=== PATIENT | male | born 2000 | race Caucasian/White ===

== ENCOUNTER 2020-11-22 22:50 | Emergency (ER) | payer BC, SELFPAY ==
[2020-11-22 22:54] VITALS: BP 156/91; PULSE 82; RESP 16; TEMP 35.7; O2SAT 98
--- NOTE | 2020-11-22 23:01 | ED.GENADUL_ITS ---
Discharge Plan Disposition Patient Disposition: HOME Condition: Good Discharge Details Clinical Impression: Dog bite of multiple sites, Closed fracture of phalanx of right little finger, Laceration of muscle of right forearm Primary Care Provider: None,None ED Provider: Ismael Aguirre and New Rx's Prescriptions: New amoxicillin-pot clavulanate [Augmentin] 875-125 mg tablet 1 tab PO BID Qty: 10 RF: 0 Continued cetirizine [Zyrtec] 10 mg Tablet 10 mg PO DAILY RF: 0 Discharge Instructions Instructions: Animal Bite (ED), Finger Fracture (ED), Opioid Safety (ED) Additional Instructions: Leave dressings in place until wound check here on Wednesday. May use the [place] if needed for pain this . Otherwise, keep hands elevated and use Tylenol or Motrin. Ice on off for swelling. Call orthopedics Wednesday for follow up of little finger and forearm muscle. Return to ED for increasing pain, fever, redness, numbness, weakness, cold/white hand. Referrals: [facility] [Provider Group] Medical Decision Making Patient with multiple dog bite injury to E. Given Percocet and Augmentin and sent to x-ray. X-ray of left hand negative. Right hand with fracture of the proximal phalanx of the little finger. Right forearm with no fracture or foreign body but extensive subcue emphysema. Puncture wounds all irrigated clean. Laceration anesthetized and then irrigated out. Muscle protruding from laceration but due to small size of wound unable to visualize extent of injury. Appears to have ability to flex wrist and fingers, though with pain. No attempt to repair muscle. Muscle debrided of clot and tucked back into wound. Skin closed. All wounds dressed and wrapped. Little finger place in aluminum foam splint. Patient will be continued on Augmentin. Given to go pack of [place] #4 tabs. Return here for wound check and dressing change on Wednesday. Call ortho Wednesday for follow up regarding finger and forearm injury. HPI General Mode of arrival: ambulatory . Date/Time Provider Initiated Documentation: 11/22/20 23:01 . Limitations to Documentation: no limitations . Information obtained by: patient and RN notes reviewed . HPI Narrative: Patient presents to ED with multiple dog bites involving both upper extremities. It was the patient's own dog. Dog had urinated in house and patient was trying to crate him so could clean up. Dog attacked. Dog is up to date on shots. Patient is up to date on tetanus. He sustained injury to left hand, right hand, right forearm. Complains of some tingling back of right hand/thumb. Related Data Home Medications Medication Instructions Recorded Confirmed cetirizine [Zyrtec] 10 mg PO DAILY 11/22/20 11/22/20 amoxicillin-pot clavulanate 1 tab PO BID #10 tab 11/23/20 [Augmentin] Previous Rx's Medication Instructions Recorded amoxicillin-pot clavulanate 1 tab PO BID #10 tab 11/23/20 [Augmentin] Allergies Allergy/AdvReac Type Severity Reaction Status Date / Time No Known Allergies Allergy Unverified 11/22/20 22:55 General Stated Complaint: AnimalBite AMENA: 3 Review of Systems Constitutional Constitutional: Denies fever(s) Cardiovascular Cardiovascular: Denies dyspnea Respiratory Respiratory: Denies cough and Denies dyspnea Musculoskeletal Musculoskeletal: Reports deformity and Reports tingling Integumentary/Breasts Skin/Breast: Reports wounds Neurologic Neurologic: Reports tingling PFSH Medical History No significant past medical history Surgical History (Updated 11/23/20 @ 01:13 by Ismael Aguirre MD) No significant past surgical history Social History Smoking/Tobacco Use Status: Never Smoking risk assessment performed?: Yes Alcohol Intake: never Substance use type: does not use Do you feel safe at home: Yes Do you feel safe in your relationship?: Yes Exam Const General: cooperative Orientation: alert and oriented x3 Neck Neck: trachea midline and supple Resp Effort & Inspection: normal respiratory effort Skin Other: Puncture wounds to dorsal/volar aspect of left hand. Puncture wounds to right forearm. Laceration with muscle belly protruding from volar right forearm. Lac 2cm in length. Extrem Other: Left hand with decreased ROM of thumb due to pain. Puncture wounds/crush injury involving base of thumb area. Is able to flex and extended all digits but with pain. Right hand with decreased ROM due to pain in forearm. Little finger deformed. Able to flex/extended digits but not fully due to pain in forearm. Right forearm with puncture wounds, laceration and crush injury present. Motor in tact. Sensory subjetively abnormal dorsum of hand involving thumb, index finger. Radial pulses good. Cap refill good. Course Vital Signs Vital signs: Vital Signs Temperature 96.3 F L 11/22/20 22:54 Pulse 82 11/22/20 22:54 Respiratory Rate 16 11/22/20 22:54 Blood Pressure 156/91 H 11/22/20 22:54 Pulse Oximetry 98 11/22/20 22:54 Temperature 96.3 F L 11/22/20 22:54 Temperature Source Skin 11/22/20 22:54 Pulse 82 11/22/20 22:54 Respiratory Rate 16 11/22/20 22:54 Blood Pressure 156/91 H 11/22/20 22:54 Blood Pressure Position Sitting 11/22/20 22:54 Pulse Oximetry 98 11/22/20 22:54 Oxygen Delivery Method Room Air 11/22/20 22:54 Oxygen Flow Rate 0 11/22/20 22:54 Pain Level 10 11/22/20 22:54 Procedures Laceration Laceration 1: Site: upper extremity Side (If applicable): right Size (cm): 2 Description: linear Depth: involves muscle layer Local Anesthetic: Lidocaine 1% Amount of anesthesia used (mL): 4 Pre-repair: wound explored and irrigated extensively Skin layer closed with: nylon Size (cm): 4-0 Number of sutures: 3 Orthopedic Splinting/Casting Injury #1: Side: right Upper Extremity Injury Location: finger Upper Extremity Immobilizer: aluminum form splint
[2020-11-22] MEDS: oxyCODONE 5 mg/Acetaminophen 325 mg TAB 1 TAB PO (23:20)
--- NOTE | 2020-11-22 23:37 | DI.RAD_ITS ---
EXAM: XR HAND RT COMPLETE CLINICAL HISTORY: dog bite/attack. TECHNIQUE: 2D digital imaging was performed. COMPARISON: No exams were available for comparison FINDINGS: BONES: There is a fracture of the proximal phalanx of the 5th finger extending mainly transversely ne ar the base. There is no definite extension to the articular surface. There is some angulation but no significant displacement.. No bony destructive lesion is seen. JOINTS: No dislocation present. SOFT TISSUE: Subcutaneous emphysema is seen in the wrist. IMPRESSION: Fracture of the proximal phalanx of the 5th finger. DATA REPOSITORY: RADIATION DOSE DELIVERED:
--- NOTE | 2020-11-22 23:38 | DI.RAD_ITS ---
EXAM: XR FOREARM RT CLINICAL HISTORY: dog bite/attack. TECHNIQUE: 2D digital imaging was performed. COMPARISON: CR,XR XR HAND LT COMPLETE from 11/22/2020 FINDINGS: BONES: No acute fracture is present. No bony destructive lesion is seen. Visualized portion of elbow and wrist joints are unremarkable. SOFT TISSUE: There is a soft tissue laceration seen ventrally in the distal forearm. There is a mode rate amount subcutaneous emphysema. IMPRESSION: Soft tissue laceration and subcutaneous emphysema. No fracture or foreign body. DATA REPOSITORY: RADIATION DOSE DELIVERED:
--- NOTE | 2020-11-22 23:39 | DI.RAD_ITS ---
EXAM: XR HAND LT COMPLETE CLINICAL HISTORY: dog bite/attack. TECHNIQUE: 2D digital imaging was performed. COMPARISON: CR,XR XR HAND RT COMPLETE from 11/22/2020 FINDINGS: BONES: No acute fracture is present. No bony destructive lesion is seen. JOINTS: No dislocation present. SOFT TISSUE: Normal. No foreign body or abnormal gas collection. IMPRESSION: Unremarkable radiographs of the left hand. DATA REPOSITORY: RADIATION DOSE DELIVERED:
--- NOTE | 2020-11-22 23:52 | DI.VRAD_ITS ---
PROCEDURE INFORMATION: Exam: XR Right Hand Exam date and time: 11/22/2020 11:17 PM Age: 20 years old Clinical indication: Injury or trauma; Other: Dog attack; Bite; Hand; Right; Injury date: 11/22/20 TECHNIQUE: Imaging protocol: XR Right hand. Views: 3 or more views. COMPARISON: No relevant prior studies available. FINDINGS: Bones/joints: Minimally displaced and angulated extra-articular fracture of proximal little finger proximal phalanx. Other bones and joints are intact. Normal osseous mineralization. Soft tissues: Unremarkable soft tissues. IMPRESSION: Minimally displaced and angulated extra-articular fracture of the little finger proximal phalanx. Dictated and Authenticated by: Ghulam Green MD. Ordering:DREA Guevara MD
--- NOTE | 2020-11-22 23:53 | DI.VRAD_ITS ---
PROCEDURE INFORMATION: Exam: XR Left Hand Exam date and time: 11/22/2020 11:39 PM Age: 20 years old Clinical indication: Injury or trauma; Other: Dog attack; Bite; Hand; Left; Injury date: 11/22/20 TECHNIQUE: Imaging protocol: XR Left hand. Views: 3 or more views. COMPARISON: No relevant prior studies available. FINDINGS: Bones/joints: Prior ulnar styloid fracture. No acute fracture or dislocation. Normal osseous mineralization. Soft tissues: Unremarkable soft tissues. IMPRESSION: No acute fracture. Dictated and Authenticated by: Ghulam Green MD. Ordering:DREA Guevara MD
--- NOTE | 2020-11-22 23:54 | DI.VRAD_ITS ---
PROCEDURE INFORMATION: Exam: XR Right Forearm Exam date and time: 11/22/2020 11:39 PM Age: 20 years old Clinical indication: Injury or trauma; Other: Dog attack; Bite; Arm, lower; Right; Injury date: 11/22/20 TECHNIQUE: Imaging protocol: XR Right forearm. Views: 2 views. COMPARISON: No relevant prior studies available. FINDINGS: Bones/joints: No fracture or dislocation. Normal osseous mineralization. Soft tissues: Moderate subcutaneous emphysema. No radiopaque foreign body. IMPRESSION: 1. No acute fracture. 2. Subcutaneous emphysema. No retained radiopaque foreign body. Dictated and Authenticated by: Ghulam Green MD. Ordering:DREA Guevara MD
[2020-11-23 00:46] VITALS: BP 146/81; PULSE 70; RESP 16; O2SAT 99
--- NOTE | 2020-11-23 07:23 | NUR.NOTE ---
Addendum entered by Adele Bowman 11/23/20 08:38: Message left on cell phone for Navid Loya, health officer regarding animal bite. Adele Bowman Original Note: Nursing Note: Animal bite report form faxed to [facility] Health Officer, Navid Loya. Adele Bowman
== END 2020-11-23 00:55 | disposition home or self-care (01) ==
PROVIDERS: Emergency Provider Emergency Medicine
DX: S62.646A Nondisplaced fracture of proximal phalanx of right little finger, initial encounter for closed fracture (principal); S51.851A Open bite of right forearm, initial encounter; S56.921A Laceration of unspecified muscles, fascia and tendons at forearm level, right arm, initial encounter; W54.0XXA Bitten by dog, initial encounter
CPT/HCPCS: 12001; 99284; 73090; 73130

== ENCOUNTER 2020-11-25 17:59 | Emergency (ER) | payer BC, SELFPAY ==
[2020-11-25 18:02] VITALS: BP 126/79; PULSE 69; RESP 18; TEMP 36.5; O2SAT 98
--- NOTE | 2020-11-25 18:28 | W.ED.GENAD ---
Discharge Plan Disposition Patient Disposition: HOME Condition: Fair Discharge Details Clinical Impression: Dog bite of multiple sites, Infected dog bite Primary Care Provider: None,None ED Provider: Jessica Hoffmann Home Meds and New Rx's Prescriptions: Continued cetirizine [Zyrtec] 10 mg Tablet 10 mg PO DAILY RF: 0 amoxicillin-pot clavulanate [Augmentin] 875-125 mg tablet 1 tab PO BID Qty: 10 RF: 0 Discharge Instructions Instructions: Animal Bite (ED) Additional Instructions: You need to take the antibiotics as prescribed. You also need follow up with orthopedics. Please call tomorrow to schedule appointment. You were given antibiotics tonight, next dose in themorning. If you develop fevers/chills, increased pain, spreading of the redness or other new/worsening symptoms please seek care urgently once again. Referrals: Kevyn Olivarez MD [ [facility] STAFF PHYSICIAN] - Discharge Data Discharge Date/Time-TO BE ENTERED AT DEPARTURE: 11/25/20 20:55 Medical Decision Making Patient is a pleasant 20-year-old [id number] male presenting today with chief complaint of right arm pain. He was seen here 3 days ago after his dog bit him. At that time, his wound was closed with simple interrupted stitches on the right forearm. He was prescribed Augmentin but did not pick this up until today. States that he took 1 dosing of the amoxicillin thus far. States that he has been noting increased swelling and pain. He denies any numbness or tingling. Patient has notable deformity to the fifth digit of the right hand. No fracture to this area. Patient has been keeping splint in place. He was instructed to call orthopedics was not done so as of yet. Denies any fevers or chills. Has noted erythema spreading proximally from the laceration on the forearm. On exam, patient appears uncomfortable Movement of the right upper extremity. He appears nontoxic. He is afebrile. He has notable area of swelling and erythema to the right forearm. This is explored with ultrasound by myself as well as Dr. Hammond. No focal area of fluid collection to suggest abscess is noted. Rather, this seems more consistent with soft tissue swelling and cellulitis. The laceration appears well approximated with no drainage expressed. He also has fifth digit deformity proximally. Puncture wound noted on the dorsal aspect. No erythema, warmth or drainage associated with this. I am concerned with the spreading of the erythema and notable swelling that the patient may have a significant infection. He does not appear to have compartment syndrome, abscess, tenosynovitis. Will obtain baseline labs and give IV antibiotics. Labs reviewed. No leukocytosis. Noticeably dehydrated with elevated BUN but CMP otherwise within normal limits. Lactate normal. Discussed these findings with the patient. I encouraged elevation and icing the areas to help with discomfort, particularly in the pain of the fifth digit. Splint was reapplied to the. He has now picked up his Augmentin. Will take this as prescribed. Encourage close follow-up with orthopedics. He will call tomorrow to schedule follow-up for this. Strict return precautions were given. We discussed wound care once again. All the questions concerns were addressed and he is agreement this plan. HPI General Mode of arrival: ambulatory. Date/Time Provider Initiated Documentation: 11/25/20 18:28. Limitations to Documentation: no limitations. Information obtained by: patient and RN notes reviewed. History of Present Illness 20 year old M presents to the emergency department with the chief complaint of right arm pain, described as moderate, Quality is described as burning and aching, and is localized to the right and upper extremity. Patient extremity and proximal. Patient started experiencing this day(s) (bit by dog 3 days ago) and it has been constant. Immobilization improves symptom(s), Movement worsens symptoms . Patient notes rash (erythema); denies fever/chills. Patient did receive the following treatments prior to arrival, other (one dose of abx this AM) Related Data Home Medications Medication Instructions Recorded Confirmed cetirizine [Zyrtec] 10 mg PO DAILY 11/22/20 11/25/20 amoxicillin-pot clavulanate 1 tab PO BID #10 tab 11/23/20 11/25/20 [Augmentin] Previous Rx's Medication Instructions Recorded amoxicillin-pot clavulanate 1 tab PO BID #10 tab 11/23/20 [Augmentin] Allergies Allergy/AdvReac Type Severity Reaction Status Date / Time No Known Allergies Allergy Unverified 11/25/20 18:05 General Stated Complaint: Recheck AMENA: 4 Review of Systems Constitutional Constitutional: Reports as per HPI, Denies chills, Denies fever(s), Denies headache(s) and Denies weakness ENT Ears, Nose, Mouth, and Throat: Denies headache(s) Cardiovascular Cardiovascular: Reports as per HPI Respiratory Respiratory: Reports as per HPI and Denies cough Musculoskeletal Musculoskeletal: Reports as per HPI and Denies tingling Integumentary/Breasts Skin/Breast: Reports as per HPI, Reports non-healing lesions, Reports erythema, Reports skin pain, Reports skin swelling and Reports wounds Neurologic Neurologic: Reports as per HPI, Denies headache(s), Denies tingling, Denies paresthesias and Denies weakness [facility] Medical History No significant past medical history Surgical History No significant past surgical history Social History Smoking/Tobacco Use Status: Never Smoking risk assessment performed?: Yes Alcohol Intake: never Substance use type: does not use Do you feel safe at home: Yes Do you feel safe in your relationship?: Yes Exam Const General: cooperative, healthy appearing, comfortable, no acute distress, well developed and well groomed Nutritional Appearance: average body habitus and well nourished Orientation: alert and awake Resp Effort & Inspection: normal respiratory effort, able to speak in complete sentences and no respiratory distress Cardio Rate: regular rate Rhythm: regular rhythm Skin General skin exam: erythema Wounds: wounds noted Neuro General: patient alert and patient awake Cognition: normal cognition Speech: speech normal Gait: normal gait Motor: muscle tone normal throughout Sensory Exam: no sensory deficits noted Extrem Right upper extremity: normal capillary refill and hand Details: abnormal to inspection (Deformity to fifth digit) Elbow/forearm/wrist images: 1. well defined area of swelling. Erythema noted with soft edges. Feels more swollen and fluctuant. Tender to touch. Full range of motion of the elbow. 2. laceration, closed with 3 interupted stitches. Pain at the stitches radiates proximally. Pain is increased with extension of the wrist but he is able to do so but this does cause discomfort. Good flexion of the wrist. Sensation is intact. Psych Appearance: grossly normal and well kempt Mental Status: mental status grossly normal Speech and Movement: speech and movement normal Course Vital Signs Vital signs: Vital Signs Temperature 36.5 C 12/28/20 18:02 Pulse 69 11/25/20 18:02 Respiratory Rate 18 11/25/20 18:02 Blood Pressure 126/79 11/25/20 18:02 Pulse Oximetry 98 11/25/20 18:02 Temperature 36.5 C 11/25/20 18:02 Temperature Source Skin 11/25/20 18:02 Pulse 69 11/25/20 18:02 Respiratory Rate 18 11/25/20 18:02 Respiratory Effort Non-Labored 11/25/20 18:06 Blood Pressure 126/79 11/25/20 18:02 Blood Pressure Position Sitting 11/25/20 18:02 Pulse Oximetry 98 11/25/20 18:02 Oxygen Delivery Method Room Air 11/25/20 18:02 Oxygen Flow Rate 0 11/25/20 18:02 Pain Level 2 11/25/20 18:02
[2020-11-25 18:50] LABS: Abs Immature Grans 0.04 10^3/uL (0.0-0.06); Absolute Basophil Count 0.04 10^3/uL (0.0-0.2); Absolute Monocyte Count 0.95 10^3/uL (0.1-0.8); Absolute Neutrophil Count 6.43 10^3/uL (1.2-6.7); Basophils % 0.4; Eosinophils % 3.9; HCT 45.3 % (40.0-50.0); HGB 15.7 g/dL (13.5-17.5); Immature Grans % 0.4; Lactate 1.1 mmol/L (0.6-1.4); Lymphocytes % 23.4; MCH 32.2 pg (27.0-33.0); MCHC 34.7 % (32.0-36.0); Monocytes % 9.3; Neutrophils % 62.6; Nucleated RBC 0 %; Platelet Count 244 10^3/uL (130-400); RBC 4.87 10^6/uL (4.36-5.78); RDW 11.8 % (11.8-14.1); RDW-SD 40.7 fL; WBC 10.26 10^3/uL (4.4-10.8)
[2020-11-25] MEDS: Normal Saline 1,000 ML 1000 ML IV (19:00)
[2020-11-25] MEDS: PIPERACILLIN/TAZO 3.375 GM in Normal Saline 100 ML IVPB (19:01)
[2020-11-25 19:14] LABS: ALT 36 U/L (16-63); AST 20 U/L (15-37); Albumin 4.1 g/dL (3.4-5.0); Alkaline Phosphatase 75 U/L (46-116); Anion Gap 7.5 mmol/L (3-11); BUN 22 mg/dL (7-18); Bilirubin, Total 0.5 mg/dL (0.2-1.0); CO2 27.5 mmol/L (21.0-32.0); CREATININE 0.97 mg/dL (0.70-1.30); Calcium 9.1 mg/dL (8.5-10.1); Chloride 104 mmol/L (98-107); Glucose 90 mg/dL (74-106); Potassium 4.2 mmol/L (3.5-5.1); Sodium 139 mmol/L (136-145); Total Protein 7.6 g/dL (6.4-8.2)
== END 2020-11-25 20:55 | disposition home or self-care (01) ==
PROVIDERS: Emergency Provider Physician Assistant
DX: S51.851A Open bite of right forearm, initial encounter (principal); L03.113 Cellulitis of right upper limb; W54.0XXA Bitten by dog, initial encounter; R60.0 Localized edema; Y84.8 Other medical procedures as the cause of abnormal reaction of the patient, or of later complication, without mention of misadventure at the time of the procedure; E86.0 Dehydration
CPT/HCPCS: 80053; 96361; 96365; 99284; 83605; 85025; J2543

== ENCOUNTER 2020-12-09 15:44 | Outpatient (CLI) | payer BC, SELFPAY ==
--- NOTE | 2020-12-09 15:30 | DI.RAD_ITS ---
EXAM: XR HAND RT COMPLETE CLINICAL HISTORY: follow up. TECHNIQUE: 2D digital imaging was performed. COMPARISON: CR,XR XR HAND LT COMPLETE from 11/22/2020 FINDINGS: There is a fracture at the base of proximal phalanx 5th finger this mild angulation. There is no fra cture of the adjacent metacarpal elsewhere right. There is no radiopaque foreign body. No osseous l esions. IMPRESSION: Proximal phalanx fracture right 5th finger. DATA REPOSITORY: RADIATION DOSE DELIVERED:
== END 2020-12-09 16:04 ==
PROVIDERS: Visit Provider Physician Assistant Surgical
DX: S62.616A Displaced fracture of proximal phalanx of right little finger, initial encounter for closed fracture (principal)
CPT/HCPCS: 73130

== ENCOUNTER 2020-12-25 18:08 | Emergency (ER) | payer BC, SELFPAY ==
[2020-12-25 18:15] VITALS: BP 163/89; PULSE 77; RESP 16; TEMP 37; O2SAT 98
--- NOTE | 2020-12-25 18:26 | ED.GENADUL_ITS ---
Discharge Plan Disposition Patient Disposition: HOME Condition: Good Discharge Details Clinical Impression: Viral enteritis, Dehydration, Vomiting Primary Care Provider: None,None ED Provider: Bertin Camarena Home Meds and New Rx's Prescriptions: New ondansetron HCl [Zofran] 4 mg tablet 4 mg PO Q8H Qty: 12 RF: 0 Continued cetirizine [Zyrtec] 10 mg Tablet 10 mg PO DAILY RF: 0 Discharge Instructions Instructions: Dehydration (ED), Acute Nausea and Vomiting (ED) Additional Instructions: At this time your labs are reassuring, I suspect that you had a mild virus that caused your symptoms. Please stick with a clear liquid diet for the next 24 to 48 hours and gradually advance your diet. Please take the Zofran as needed for nausea and vomiting. There is a chance that this could have been coronavirus, although that is unlikely. I would recommend quarantining until your symptoms resolve. The test results should be back by next 48 to 72 hours. You will be contacted when your results return. If you notice any worsening of your symptoms, or any new symptoms such as vomiting, diarrhea, fever, chills, shortness of breath, chest pain, numbness, weakness, or fainting , please return immediately to the emergency department for reevaluation. Please follow up with your primary care provider as soon as possible for reassessment and reevaluation. As always, it was a pleasure participating in your medical care today. Medical Decision Making 20-year-old male with no significant past medical history presents today for evaluation of nausea and vomiting subjective chills and fever. Patient states that for the last 24 to 48 hours he has been vomiting and unable to keep anything down. Patient states that his vomiting has been nonbloody, with no coffee grounds. He denies any diarrhea. He denies any other sick contacts. He denies any exposure to Covid. He denies any decrease in taste or smell. He denies any abdominal pain. He has no other complaints at this time. He does smoke marijuana but has stopped smoking since his symptoms started. Physical exam demonstrates notably dry mucous membranes, nontender nonsensitive abdomen. Nontender genitals. Symptoms appearing consistent with acute surgical abdomen. Differential is highest for viral etiology causing his vomiting. Pancreatitis also on the differential. No indication for emergent imaging at this time. Will aggressively rehydrate, give Zofran, for formal trial. Symptom s do not appear to consistent with cyclic vomiting syndrome at this time clinically. 7:46 PM Laboratory work-up is returned, notably unremarkable, electrolytes are stable, anion gap at 12.3, lipase normal. After 2 L of normal saline the patient is feeling better. He has been able to tolerate crackers and juice. He is requesting to go home. Signs and symptoms appear consistent with viral etio logy. Will give Zofran to go, and the Zofran prescription. Discussed slow return to normal diet. Did offer to contact his girlfriend however he stated that he will text her. I have extensively reviewed the treatment plan and discharge instructions with the patient. I have addressed all patient concerns at this time. The patient was made aware of what symptoms to monitor for that would warrant a return to the emergency department. Discussed the plan with the patient, they demonstrate verbal understanding and agreement with our assessment and plan at this time. HPI General Date/Time Provider Initiated Documentation: 12/25/20 18:09 . HPI Narrative: 20-year-old male with no significant past medical history presents today for evaluation of nausea and vomiting subjective chills and fever. Patient states that for the last 24 to 48 hours he has been vomiting and unable to keep anything down. Patient states that his vomiting has been nonbloody, with no coffee grounds. He denies any diarrhea. He denies any other sick contacts. He denies any exposure to Covid. He denies any decrease in taste or smell. He denies any abdominal pain. He has no other complaints at this time. He does smoke marijuana but has stopped smoking since his symptoms started. Related Data Home Medications Medication Instructions Recorded Confirmed cetirizine [Zyrtec] 10 mg PO DAILY 11/22/20 12/25/20 ondansetron HCl [Zofran] 4 mg PO Q8H #12 tab 12/25/20 Previous Rx's Medication Instructions Recorded ondansetron HCl [Zofran] 4 mg PO Q8H #12 tab 12/25/20 Allergies Allergy/AdvReac Type Severity Reaction Status Date / Time tomato Allergy Unverified 12/25/20 18:22 animal dander Allergy Uncoded 12/25/20 18:23 dust Allergy Uncoded 12/25/20 18:23 General Stated Complaint: Nausea/Vomit/Diar AMENA: 3 Review of Systems All systems reviewed & are unremarkable except as noted in HPI and below PFSH Medical History No significant past medical history Surgical History No significant past surgical history Social History Smoking/Tobacco Use Status: Never Smoking risk assessment performed?: Yes Alcohol Intake: never Drug use: Occasionally Substance use type: marijuana Current gender identity: male Do you feel safe at home: Yes Do you feel safe in your relationship?: Yes Exam Narrative Exam Narrative: 1.Const: Well-nourished, Well-developed, appearing stated age 2.Eyes: PERRL, no conjunctival injection, and symmetrical lids. 3.ENT: Atraumatic external nose and ears. Notably dry MM. Neck: Symmetric, trachea midline, No thyromegaly. 4.CVS: +S1/S2, No murmurs or gallops. Peripheral pulses 2+ and equal in all extremities. Brisk capillary refill in all extremities. 5.RESP: Unlabored respiratory effort. Clear to auscultation bilaterally. No wheezes rales or rhonchi 6.GI: Soft, Nontender/Nondistended, No hepatosplenomegaly. No guarding or rebound. No pain at McBurney's point, negative Ybarra sign. 7.MSK: Normocephalic/Atraumatic, Extremities w/o deformity or ttp No cyanosis or clubbing, Normal movement of all extremities 8.Skin: Warm, Dry. No rashes or lesions. 9.Neuro: ironworker apprentice II-XII grossly intact. Sensation grossly intact, no focal neurologic deficits. 10.Psych: (AAO) x3. Appropriate mood and affect Course Vital Signs Vital signs: Vital Signs Temperature 37 C 12/25/20 18:15 Pulse 77 12/25/20 18:15 Respiratory Rate 16 12/25/20 18:15 Blood Pressure 163/89 H 12/25/20 18:15 Temperature 37 C 12/25/20 18:15 Temperature Source Skin 12/25/20 18:15 Pulse 77 12/25/20 18:15 Respiratory Rate 16 12/25/20 18:15 Respiratory Effort Non-Labored 12/25/20 18:15 Blood Pressure 163/89 H 12/25/20 18:15 Blood Pressure Position Sitting 12/25/20 18:15 Pain Level 1 12/25/20 18:15
[2020-12-25] MEDS: Normal Saline 1,000 ML 1000 ML IV ×2 (18:30→19:02)
[2020-12-25] MEDS: Ondansetron 4 MG/2 ML VIAL IVP (18:45)
[2020-12-25 18:48] LABS: Abs Immature Grans 0.01 10^3/uL (0.0-0.06); Absolute Basophil Count 0.03 10^3/uL (0.0-0.2); Absolute Eosinophil Count 0.06 10^3/uL (0.0-0.7); Absolute Lymphocyte Count 1.68 10^3/uL (1.2-3.4); Absolute Monocyte Count 0.71 10^3/uL (0.1-0.8); Absolute Neutrophil Count 6.85 10^3/uL (1.2-6.7); Basophils % 0.3; Eosinophils % 0.6; HCT 46.9 % (40.0-50.0); HGB 17.1 g/dL (13.5-17.5); Immature Grans % 0.1; MCH 32.4 pg (27.0-33.0); MCHC 36.5 % (32.0-36.0); MPV 9.2 fL (8.0-11.0); Monocytes % 7.6; Neutrophils % 73.4; Nucleated RBC 0 %; Platelet Count 247 10^3/uL (130-400); RBC 5.27 10^6/uL (4.36-5.78); RDW 11.4 % (11.8-14.1); RDW-SD 36.9 fL; WBC 9.34 10^3/uL (4.4-10.8)
[2020-12-25 18:54] LABS: Magnesium 1.9 mg/dL (1.8-2.4)
[2020-12-25 18:58] VITALS: TEMP 37.2
[2020-12-25 19:00] LABS: ALT 28 U/L (16-63); AST 16 U/L (15-37); Albumin 4.9 g/dL (3.4-5.0); Alkaline Phosphatase 83 U/L (46-116); Anion Gap 12.3 mmol/L (3-11); BUN 10 mg/dL (7-18); Bilirubin, Total 1.2 mg/dL (0.2-1.0); CO2 23.7 mmol/L (21.0-32.0); Calcium 9.3 mg/dL (8.5-10.1); Chloride 103 mmol/L (98-107); Glucose 109 mg/dL (74-106); Lipase 57 U/L (73-393); Potassium 3.5 mmol/L (3.5-5.1); Sodium 139 mmol/L (136-145); Total Protein 8.1 g/dL (6.4-8.2)
[2020-12-25] MEDS: Normal Saline 500 ML IV (19:32)
[2020-12-25 19:38] VITALS: BP 139/73; PULSE 58; PULSE 61; RESP 15; O2SAT 97
[2020-12-25 19:39] VITALS: PULSE 66; RESP 14; O2SAT 99
[2020-12-25 19:40] VITALS: PULSE 70; RESP 16; O2SAT 97
--- NOTE | 2020-12-25 19:44 | NUR.NOTE ---
Nursing Note:Patient's color improving, more alert. Not much interest in PO but let him know he needed to have something so we can make sure he can keep it down.
[2020-12-25 19:50] VITALS: PULSE 60; RESP 17
[2020-12-25] MEDS: Ondansetron O.D.T. 4 MG TABEF, 3 TABS/BTL PO (19:55)
[2020-12-27 13:39] LABS: COVID-19 RT-PCR UVMMC Result Negative (Negative)
== END 2020-12-25 20:07 | disposition home or self-care (01) ==
PROVIDERS: Emergency Provider Student in an Organized Health Care Education/Training Program
DX: A08.4 Viral intestinal infection, unspecified (principal); E86.0 Dehydration; Z03.818 Encounter for observation for suspected exposure to other biological agents ruled out
CPT/HCPCS: 36415; 80053; 83690; 96361; 96374; 99284; U0003; 83735; 85025; J2405

== ENCOUNTER 2020-12-26 14:26 | Emergency (ER) | payer BC, SELFPAY ==
[2020-12-26 14:37] VITALS: BP 140/88; PULSE 80; RESP 22; TEMP 36.4; O2SAT 98
[2020-12-26 14:46] VITALS: RESP 22
--- NOTE | 2020-12-26 15:21 | W.ED.GENAD ---
Discharge Plan Disposition Patient Disposition: HOME Condition: Stable Discharge Details Clinical Impression: Anxiety and depression Primary Care Provider: None,None ED Provider: Cassy Pike Home Meds and New Rx's Prescriptions: Continued cetirizine [Zyrtec] 10 mg Tablet 10 mg PO DAILY RF: 0 ondansetron HCl [Zofran] 4 mg tablet 4 mg PO Q8H Qty: 12 RF: 0 Discharge Instructions Instructions: Anxiety (ED) Additional Instructions: continue usual medication try relaxation techniques discussed today with mental health return immediately for any new or worsening symtpoms Referrals: None,None [Primary Care Provider] - (follow up outpatient with mental health, referral has been placed) Discharge Data Discharge Date/Time-TO BE ENTERED AT DEPARTURE: 12/26/20 16:40 Medical Decision Making <BAUTISTA Ramirez - Last Filed: 12/27/20 16:23> 20-year-old gentleman presenting with chief complaint of anxiety and panic attacks. He feels completely stressed and overwhelmed. He reports stressors include he is in the process of moving, his mother makes the situation worse, he does not currently have a job, and he was recently forced to get his dog up. He has not been sleeping well. He denies any suicidal or homicidal ideations. He does feel safe. He does not have any outpatient resources. He admits to marijuana use nearly daily and occasional alcohol use. Denies drug use. He currently has no medical concerns or complaints at this time. He took Zofran today that was prescribed yesterday with good relief of his symptoms. I do not believe that any repeat laboratory values are required at this time. He has no acute medical problems, clinically does not appear to be dehydrated. I will have care management evaluate the patient to see if he can be helped with additional outpatient resources. I will also request that mental health evaluate the patient for his increased stress and feelings of being overwhelmed. I was able to speak with mental health who plans to perform a Zoom assessment with the patient. At time of signout, patient was awaiting both care management and mental health evaluation. Care signed out to Cassy Pike NP pending care management and mental health evaluation, and then final disposition. Medical Records Medical records reviewed: Yes I reviewed the patient's medical records. <Cassy Pike NP - Last Filed: 12/26/20 16:25> care of patient received mental health consult completed and plan for outpatient therapy, referral placed by mental health. Medical Records Medical records reviewed: Yes I reviewed the patient's medical records. Lab Data Lab results reviewed: Yes I reviewed the patient's lab results. HPI <BAUTISTA Ramirez - Last Filed: 12/27/20 16:23> General Mode of arrival: ambulatory. Date/Time Provider Initiated Documentation: 12/26/20 14:45. Limitations to Documentation: no limitations. Information obtained by: patient. HPI Narrative: This is a 20-year-old male, presenting to the ER for worsening anxiety and what he describes as panic attacks over the past few days. He states that he has had a increased stress at home, feeling hopeless, he is in the process of moving, just not had a job currently, and recently had to give up his dog. He states that his girlfriend is a good support system but he is feeling completely overwhelmed. He reports that his mother increases his stress. He was seen in the ER yesterday, labs were unremarkable and given Zofran. He states that he is feeling increased stress that he is sick but wonders if his stress is actually causing his sickness. He denies recent trauma. Denies headache, neck pain, chest pain, abdominal pain, dysuria, back pain, numbness, tingling, weakness. He does smoke marijuana nearly daily but has not in the past 2 days. Last drink alcohol 3 days ago, but was sober for the past 3 months or so. He denies feeling suicidal or homicidal. He does report feeling safe. Related Data Home Medications Medication Instructions Recorded Confirmed cetirizine [Zyrtec] 10 mg PO DAILY 11/22/20 12/26/20 ondansetron HCl [Zofran] 4 mg PO Q8H #12 tab 12/25/20 12/26/20 Previous Rx's Medication Instructions Recorded ondansetron HCl [Zofran] 4 mg PO Q8H #12 tab 12/25/20 Allergies Allergy/AdvReac Type Severity Reaction Status Date / Time tomato Allergy Unverified 12/26/20 14:42 animal dander Allergy Uncoded 12/26/20 14:42 dust Allergy Uncoded 12/26/20 14:42 General Stated Complaint: Anxiety AMENA: 3 Review of Systems <BAUTISTA Ramirez - Last Filed: 12/27/20 16:23> Constitutional Constitutional: Denies fatigue, Denies fever(s), Denies headache(s) and Denies weakness ENT Ears, Nose, Mouth, and Throat: Denies headache(s) Cardiovascular Cardiovascular: Denies chest pain and Denies dyspnea Respiratory Respiratory: Denies cough and Denies dyspnea Gastrointestinal Gastrointestinal: Denies abdominal pain, Reports nausea and Reports vomiting Musculoskeletal Musculoskeletal: Denies back pain and Denies tingling Integumentary/Breasts Skin/Breast: Denies erythema Neurologic Neurologic: Denies headache(s), Denies tingling and Denies weakness Psychiatric Psychiatric: Reports anxiety, Denies depression, Reports panic attacks, Denies homicidal ideation and Denies suicidal ideation Endocrine Endocrine: Denies fatigue PFSH <BAUTISTA Ramirez - Last Filed: 12/27/20 16:23> Medical History No significant past medical history Surgical History No significant past surgical history Social History Smoking/Tobacco Use Status: Current every day Tobacco Type: cigarettes Years smoked: 18 and e-cigarettes Smoking risk assessment performed?: Yes Alcohol Intake: never Drug use: Daily Substance use type: marijuana Current gender identity: male Do you feel safe at home: Yes Do you feel safe in your relationship?: Yes Exam <BAUTISTA Ramirez - Last Filed: 12/27/20 16:23> Const General: cooperative, healthy appearing, comfortable and no acute distress Orientation: alert, awake and oriented x3 [facility] Head: normal to inspection, normocephalic and atraumatic Eyes General: appearance normal, both eyes and all related structures Conjunctivae: conjunctivae normal Sclera: sclerae normal Neck Neck: normal visual inspection, full ROM, no meningeal signs, trachea midline and supple Resp Effort & Inspection: normal respiratory effort and able to speak in complete sentences Auscultation: clear to auscultation bilaterally Cardio Rate: regular rate Rhythm: regular rhythm GI Palpation: soft and nontender Back/Spine/Pelvis Back: No back tenderness Skin General skin exam: no rashes or lesions noted Neuro General: patient alert, patient awake, patient oriented x3, moves all extremities and no focal motor deficits Cognition: normal cognition Speech: speech normal Gait: normal gait Motor: muscle tone normal throughout Sensory Exam: no sensory deficits noted Extrem General: normal to inspection and full ROM Psych Appearance: grossly normal Mental Status: mental status grossly normal Speech and Movement: speech and movement normal Mood: dysthymic mood Affect: sad Attitude: avoids eye contact Thought Process: normal Thought Content: normal Insight: fair Judgment: fair Course <BAUTISTA Ramirez - Last Filed: 12/27/20 16:23> Vital Signs Vital signs: Vital Signs Temperature 36.4 C L 12/26/20 14:37 Pulse 80 12/26/20 14:37 Respiratory Rate 22 12/26/20 14:37 Blood Pressure 140/88 12/26/20 14:37 Pulse Oximetry 98 12/26/20 14:37 Temperature 36.4 C L 12/26/20 14:37 Temperature Source Skin 12/26/20 14:37 Pulse 80 12/26/20 14:37 Respiratory Rate 22 12/26/20 14:46 Respiratory Effort 12/26/20 14:46 Respiratory Depth Normal 12/26/20 14:46 Respiratory Pattern Normal 12/26/20 14:46 Blood Pressure 140/88 12/26/20 14:37 Blood Pressure Position Sitting 12/26/20 14:37 Pulse Oximetry 98 12/26/20 14:37 Oxygen Delivery Method Room Air 12/26/20 14:37 Oxygen Flow Rate 0 12/26/20 14:37 Sign Out <BAUTISTA Ramirez - Last Filed: 12/27/20 16:23> Sign Out Data: Sign Out Comment: Pending mental health and care management evaluation and final disposition. Last updated by Maycol Lorenzo PA at 12/26/20 15:58
[2020-12-26 16:39] VITALS: BP 133/78; PULSE 77; RESP 18; TEMP 36.9; O2SAT 99
== END 2020-12-26 16:40 | disposition home or self-care (01) ==
PROVIDERS: Emergency Provider Nurse Practitioner Acute Care
DX: F41.8 Other specified anxiety disorders (principal)
CPT/HCPCS: 99283